=== PATIENT | female | born 1965 | race Caucasian/White ===

== ENCOUNTER 2019-03-04 14:36 | Day surgery (SDC) | payer OTHER ==
[2019-03-04] MEDS ORDERED: Depo-Medrol 40 MG/ML IM ONE (14:37)
[2019-03-04] MEDS ORDERED: Xylocaine 1% Vial 30 ML PF IJ ONE (14:37)
[2019-03-04] MEDS ORDERED: Marcaine 0.5% SDV 10 ML IJ ONE (14:37)
--- NOTE | 2019-03-04 16:27 | XRAY ---
7 seconds of fluoroscopy was used in surgery for a right intra-articular knee injection.
--- NOTE | 2019-03-04 16:37 | XRAY ---
8 seconds of fluoroscopy was used in surgery for a left intra-articular knee injection.
--- NOTE | 2019-03-05 07:12 | XRAY ---
Indication: Intra-articular injection. Intraoperative fluoroscopy was provided for 8 seconds. A single digital spot image demonstrates the needle tip to be projected over the left femur intercondylar notch. A small amount of contrast has been injected for needle tip placement. Correlate with intraoperative findings/report.
--- NOTE | 2019-03-05 07:14 | XRAY ---
Indication: Intra-articular knee injection. Intraoperative fluoroscopy was provided for 7 seconds. A single digital spot image demonstrates the needle tip to be projected over the right femur intercondylar notch. A small amount of contrast has been injected for needle tip placement. Correlate with intraoperative findings/report.
== END 2019-03-04 15:48 | disposition home or self-care (01) ==
LOC: SDC-PAIN 14:36
PROVIDERS: ATTEND Psychiatry & Neurology Pain Medicine
DX: M17.0 Bilateral primary osteoarthritis of knee (principal); E11.9 Type 2 diabetes mellitus without complications; I10 Essential (primary) hypertension; J45.909 Unspecified asthma, uncomplicated; M06.9 Rheumatoid arthritis, unspecified; E78.00 Pure hypercholesterolemia, unspecified; Z79.899 Other long term (current) drug therapy
CPT/HCPCS: 20610; 73560; 77002; 82962; 84703; J1030; J2001; Q9966

== ENCOUNTER 2019-07-29 14:11 | Day surgery (SDC) | payer OTHER ==
[2019-07-29] MEDS ORDERED: Xylocaine 1% Vial 30 ML PF IJ ONE (14:12)
[2019-07-29] MEDS ORDERED: Marcaine 0.5% SDV 10 ML IM ONE (14:12)
[2019-07-29] MEDS ORDERED: Depo-Medrol 40 MG/ML IM ONE (14:12)
--- NOTE | 2019-07-29 15:18 | XRAY ---
Indication: Right knee injection. Intraoperative fluoroscopy was provided for 9 seconds. Single digital spot image submitted for interpretation demonstrates anterior needle tip projecting over the right femur intercondylar notch. Small amount of contrast injected for needle tip placement. Correlate with intraoperative findings/report.
--- NOTE | 2019-07-29 15:20 | XRAY ---
Indication: Left knee injection. Intraoperative fluoroscopy was provided for 5 seconds. Single digital spot image submitted for interpretation demonstrates anterior needle tip projecting over the left femur intercondylar notch. Small amount of contrast injected for needle tip placement. Correlate with intraoperative findings/report.
--- NOTE | 2019-07-29 16:43 | XRAY ---
9 seconds fluoroscopy time in surgery for right knee injection.
--- NOTE | 2019-07-29 16:53 | XRAY ---
5 seconds fluoroscopy time in surgery for left knee injection.
== END 2019-07-29 15:00 | disposition home or self-care (01) ==
LOC: SDC-PAIN 14:11
PROVIDERS: ATTEND Psychiatry & Neurology Pain Medicine
DX: M17.0 Bilateral primary osteoarthritis of knee (principal); E11.9 Type 2 diabetes mellitus without complications; I10 Essential (primary) hypertension; J45.909 Unspecified asthma, uncomplicated; Z79.899 Other long term (current) drug therapy
CPT/HCPCS: 20610; 73560; 77002; 84703; J1030; J2001; Q9966

== ENCOUNTER 2020-05-11 12:40 | Day surgery (SDC) | payer OTHER ==
[2020-05-11] MEDS ORDERED: Xylocaine 1% Vial 30 ML PF IJ ONE (12:41)
[2020-05-11] MEDS ORDERED: BUPIVACAINE 0.5% VIAL IJ ONE (12:41)
[2020-05-11] MEDS ORDERED: Lactated Ringers 1,000 ML IV ONE (16:09)
--- NOTE | 2020-05-11 16:49 | XRAY ---
Indication: Right knee genicular nerve block. Intraoperative fluoroscopy was provided for 16 seconds. 2 digital spot images of the right knee submitted for interpretation demonstrates anterior needle tips projecting medial/lateral supracondylar and medial tibial plateau. Correlate with intraoperative findings/report.
--- NOTE | 2020-05-11 16:49 | XRAY ---
Indication: Left knee genicular nerve block. Intraoperative fluoroscopy was provided for 17 seconds. 2 digital spot images of the left knee submitted for interpretation demonstrates anterior needle tips projecting medial/lateral supracondylar and medial tibial plateau. Correlate with intraoperative findings/report.
--- NOTE | 2020-05-11 16:51 | XRAY ---
17 seconds fluoroscopy time in surgery for left genicular nerve block.
--- NOTE | 2020-05-11 16:51 | XRAY ---
16 seconds fluoroscopy time in surgery for right genicular nerve block.
== END 2020-05-11 15:57 | disposition home or self-care (01) ==
LOC: SDC-PAIN 12:40
PROVIDERS: ATTEND Psychiatry & Neurology Pain Medicine
DX: M17.0 Bilateral primary osteoarthritis of knee (principal); E11.9 Type 2 diabetes mellitus without complications; I10 Essential (primary) hypertension; J45.909 Unspecified asthma, uncomplicated; Z79.899 Other long term (current) drug therapy
CPT/HCPCS: 64454; 73560; 77002; 82947; 82962; 84703; J2001

== ENCOUNTER 2020-09-07 10:48 | Day surgery (SDC) | payer OTHER ==
[2020-09-07] MEDS ORDERED: SYNVISC 16 MG/2 ML SYRINGE IU ONE (10:49)
[2020-09-07] MEDS ORDERED: Xylocaine 1% Vial 30 ML PF IJ ONE (10:49)
--- NOTE | 2020-09-07 13:37 | XRAY ---
Indication: Left knee injection. Intraoperative fluoroscopy provided for 8 seconds. Single digital spot image submitted for interpretation demonstrates needle tip projecting over the left femur intercondylar notch. Small amount of contrast injected for needle tip placement. Correlate with intraoperative findings/report.
--- NOTE | 2020-09-07 13:47 | XRAY ---
Indication: Right knee injection. Intraoperative fluoroscopy provided for 7 seconds. Single digital spot image submitted for interpretation demonstrates needle tip projecting over the right femur intercondylar notch. Small amount of contrast injected for needle tip placement. Correlate with intraoperative findings/report.
--- NOTE | 2020-09-07 14:02 | XRAY ---
7 seconds fluoroscopy time in surgery for intra-articular injection of the left knee.
--- NOTE | 2020-09-07 14:02 | XRAY ---
8 seconds fluoroscopy time in surgery for intra-articular injection for the right knee.
== END 2020-09-07 13:08 | disposition home or self-care (01) ==
LOC: SDC-PAIN 10:48
PROVIDERS: ATTEND Psychiatry & Neurology Pain Medicine
DX: M17.0 Bilateral primary osteoarthritis of knee (principal); E11.9 Type 2 diabetes mellitus without complications; I10 Essential (primary) hypertension; J45.909 Unspecified asthma, uncomplicated; Z79.899 Other long term (current) drug therapy
CPT/HCPCS: 20610; 73560; 77002; 82947; 84703; J2001; J7325; Q9966

== ENCOUNTER 2020-09-14 08:51 | Day surgery (SDC) | payer OTHER ==
[2020-09-14] MEDS ORDERED: SYNVISC 16 MG/2 ML SYRINGE IU ONE (08:52)
[2020-09-14] MEDS ORDERED: Xylocaine 1% Vial 30 ML PF IJ ONE (08:52)
--- NOTE | 2020-09-14 11:08 | XRAY ---
Indication: Left knee injection. Intraoperative fluoroscopy provided for 7 seconds. Single digital spot image submitted for interpretation demonstrates needle tip projecting over the left femur intercondylar notch. Small amount of contrast injected for needle tip placement. Correlate with intraoperative findings/report.
--- NOTE | 2020-09-14 11:37 | XRAY ---
7 seconds fluoroscopy time in surgery for intra-articular injection of the right knee.
--- NOTE | 2020-09-14 11:46 | XRAY ---
7 seconds fluoroscopy time in surgery for intra-articular injection of the left knee.
== END 2020-09-14 10:41 | disposition home or self-care (01) ==
LOC: SDC-PAIN 08:51
PROVIDERS: ATTEND Psychiatry & Neurology Pain Medicine
DX: M17.0 Bilateral primary osteoarthritis of knee (principal); E11.9 Type 2 diabetes mellitus without complications; I10 Essential (primary) hypertension; J45.909 Unspecified asthma, uncomplicated; Z79.899 Other long term (current) drug therapy; E78.00 Pure hypercholesterolemia, unspecified; M06.9 Rheumatoid arthritis, unspecified
CPT/HCPCS: 20610; 73560; 77002; 82947; 84703; J2001; J7325; Q9966

== ENCOUNTER 2020-09-21 10:20 | Day surgery (SDC) | payer OTHER ==
[2020-09-21] MEDS ORDERED: SYNVISC 16 MG/2 ML SYRINGE IU ONE (10:21)
[2020-09-21] MEDS ORDERED: Xylocaine 1% Vial 30 ML PF IJ ONE (10:21)
--- NOTE | 2020-09-21 12:59 | XRAY ---
7 seconds fluoroscopy time in surgery for intra-articular injection of the right knee.
--- NOTE | 2020-09-21 13:09 | XRAY ---
8 seconds fluoroscopy time in surgery for intra-articular injection of the left knee.
--- NOTE | 2020-09-21 16:44 | XRAY ---
Indication: Right knee injection. Intraoperative fluoroscopy provided for 8 seconds. Single digital spot image submitted for interpretation demonstrates needle tip projecting over the right femur intercondylar notch. Small amount of contrast injected for needle tip placement. Correlate with intraoperative findings/report.
== END 2020-09-21 12:33 | disposition home or self-care (01) ==
LOC: SDC-PAIN 10:20
PROVIDERS: ATTEND Psychiatry & Neurology Pain Medicine
DX: M17.0 Bilateral primary osteoarthritis of knee (principal); E11.9 Type 2 diabetes mellitus without complications; I10 Essential (primary) hypertension; J45.909 Unspecified asthma, uncomplicated; Z79.899 Other long term (current) drug therapy; E78.00 Pure hypercholesterolemia, unspecified
CPT/HCPCS: 20610; 73560; 76937; 77002; 82947; 84703; J2001; J7325; Q9966

== ENCOUNTER 2021-05-10 12:03 | Day surgery (SDC) | payer OTHER ==
[2021-05-10] MEDS ORDERED: SYNVISC 16 MG/2 ML SYRINGE IU ONE (12:04)
[2021-05-10] MEDS ORDERED: Xylocaine 1% Vial 30 ML PF IJ ONE (12:04)
--- NOTE | 2021-05-10 16:42 | XRAY ---
Indication: Left knee injection. Intraoperative fluoroscopy provided for 8 seconds. Single digital spot image submitted for interpretation demonstrates needle tip projecting over left femur intercondylar notch. Small amount of contrast injected for needle tip placement. Correlate with intraoperative findings/report.
--- NOTE | 2021-05-10 16:42 | XRAY ---
Indication: Right knee injection. Intraoperative fluoroscopy provided for 10 seconds. Single digital spot image submitted for interpretation demonstrates needle tip projecting over right femur intercondylar notch. Small amount of contrast injected for needle tip placement. Correlate with intraoperative findings/report.
--- NOTE | 2021-05-10 16:44 | XRAY ---
10 seconds fluoroscopy time in surgery for intra-articular injection of the right knee.
--- NOTE | 2021-05-10 16:54 | XRAY ---
8 seconds fluoroscopy time in surgery for intra-articular injection of the left knee.
== END 2021-05-10 15:24 | disposition home or self-care (01) ==
LOC: SDC-PAIN 12:03
PROVIDERS: ATTEND Psychiatry & Neurology Pain Medicine
DX: M17.0 Bilateral primary osteoarthritis of knee (principal); E11.9 Type 2 diabetes mellitus without complications; I10 Essential (primary) hypertension; Z79.899 Other long term (current) drug therapy
CPT/HCPCS: 20610; 73560; 77002; 82947; 84703; J2001; J7325; Q9966

== ENCOUNTER 2021-05-17 12:47 | Day surgery (SDC) | payer OTHER ==
[2021-05-17] MEDS ORDERED: Xylocaine 1% Vial 30 ML PF IJ ONE (12:48)
[2021-05-17] MEDS ORDERED: SYNVISC 16 MG/2 ML SYRINGE IU ONE (12:48)
--- NOTE | 2021-05-17 16:40 | XRAY ---
Indication: Left knee injection. Intraoperative fluoroscopy provided for 4 seconds. Single digital spot image submitted for interpretation demonstrates needle tip projecting over the left femur intercondylar notch. Small amount of contrast injected for needle tip placement. Correlate with intraoperative findings/report.
--- NOTE | 2021-05-17 16:47 | XRAY ---
7 seconds of fluoroscopy was used in surgery for a left intra-articular knee injection.
--- NOTE | 2021-05-17 16:57 | XRAY ---
4 seconds of fluoroscopy was used in surgery for a left intra-articular knee injection.
== END 2021-05-17 14:49 | disposition home or self-care (01) ==
LOC: SDC-PAIN 12:47
PROVIDERS: ATTEND Psychiatry & Neurology Pain Medicine
DX: M17.0 Bilateral primary osteoarthritis of knee (principal); E11.9 Type 2 diabetes mellitus without complications; I10 Essential (primary) hypertension; Z79.899 Other long term (current) drug therapy
CPT/HCPCS: 20610; 73560; 77002; 82947; 84703; J2001; J7325; Q9966

== ENCOUNTER 2021-05-24 09:45 | Day surgery (SDC) | payer OTHER ==
[2021-05-24] MEDS ORDERED: Xylocaine 1% Vial 30 ML PF IJ ONE (09:46)
[2021-05-24] MEDS ORDERED: SYNVISC 16 MG/2 ML SYRINGE IU ONE (09:46)
--- NOTE | 2021-05-24 12:47 | XRAY ---
Indication: Right leg pain. Two-dimensional sonogram and color Doppler imaging of the major venous vessels of the right leg performed. Comparison: None No thrombus seen in the examined deep venous vessels of the right leg including greater saphenous vein. Veins demonstrate normal compressibility. Venous waveforms are normal with and without augmentation. Impression: Right leg negative for DVT.
--- NOTE | 2021-05-24 12:58 | XRAY ---
9 seconds fluoroscopy time in surgery for intra-articular injection of the left knee.
--- NOTE | 2021-05-24 12:58 | XRAY ---
8 seconds fluoroscopy time in surgery for intra-articular injection of the right knee.
--- NOTE | 2021-05-24 13:08 | XRAY ---
Indication: Left knee injection. Intraoperative fluoroscopy provided for 9 seconds. Single digital spot image submitted for interpretation demonstrates needle tip projecting over the left femur intercondylar notch. Small amount of contrast injected for needle tip placement. Correlate with intraoperative findings/report.
== END 2021-05-24 12:22 | disposition home or self-care (01) ==
LOC: SDC-PAIN 09:45
PROVIDERS: ATTEND Psychiatry & Neurology Pain Medicine
DX: M17.0 Bilateral primary osteoarthritis of knee (principal); I10 Essential (primary) hypertension; E11.9 Type 2 diabetes mellitus without complications; Z79.899 Other long term (current) drug therapy
CPT/HCPCS: 20610; 73560; 77002; 82947; 84703; 93971; J2001; J7325; Q9966

== ENCOUNTER 2021-11-22 11:01 | Day surgery (SDC) | payer OTHER ==
[2021-11-22] MEDS ORDERED: XYLOCAINE-MPF 1% 5ML SDV IJ ONE (11:02)
[2021-11-22] MEDS ORDERED: SYNVISC 16 MG/2 ML SYRINGE IU ONE (11:02)
--- NOTE | 2021-11-22 14:02 | XRAY ---
Indication: Right knee injection. Intraoperative fluoroscopy provided for 9 seconds. Single digital spot image submitted for interpretation demonstrates needle tip projecting over the right femur intercondylar notch. Small amount of contrast injected for needle tip placement. Correlate with intraoperative findings/report.
[2021-11-22] MEDS ORDERED: Lactated Ringers 1,000 ML IV ONE (14:35)
--- NOTE | 2021-11-22 16:45 | XRAY ---
9 seconds of fluoroscopy was used in surgery for a right knee intra-articular injection.
--- NOTE | 2021-11-22 16:46 | XRAY ---
8 seconds of fluoroscopy was used in surgery for a left knee intra-articular injection.
== END 2021-11-22 13:34 | disposition home or self-care (01) ==
LOC: SDC-PAIN 11:01
PROVIDERS: ATTEND Psychiatry & Neurology Pain Medicine
DX: M17.0 Bilateral primary osteoarthritis of knee (principal); E11.9 Type 2 diabetes mellitus without complications; Z79.899 Other long term (current) drug therapy
CPT/HCPCS: 20610; 73560; 77002; 82947; J7325; Q9966

== ENCOUNTER 2022-04-25 15:44 | Day surgery (SDC) | payer OTHER ==
[2022-04-25] MEDS ORDERED: Xylocaine 1% Vial 30 ML PF IJ ONE (15:45)
[2022-04-25] MEDS ORDERED: BUPIVACAINE 0.5% VIAL IJ ONE (15:45)
--- NOTE | 2022-04-25 20:00 | XRAY ---
Indication: Left knee genicular nerve block. Intraoperative fluoroscopy provided for 21 seconds. 2 digital spot images of the left knee submitted for interpretation demonstrates anterior needle tips projecting medial/lateral supracondylar and medial tibial plateau. Correlate with intraoperative findings/report.
--- NOTE | 2022-04-25 20:03 | XRAY ---
Indication: Right knee genicular nerve block. Intraoperative fluoroscopy provided for 18 seconds. 2 digital spot images of the right knee submitted for interpretation demonstrates anterior needle tips projecting medial/lateral supracondylar and medial tibial plateau. Correlate with intraoperative findings/report.
--- NOTE | 2022-04-26 08:45 | XRAY ---
21 seconds of fluoroscopy was used in surgery for a left genicular knee injection.
--- NOTE | 2022-04-26 08:46 | XRAY ---
18 seconds of fluoroscopy was used in surgery for a right genicular knee injection.
== END 2022-04-25 18:25 | disposition home or self-care (01) ==
LOC: SDC-PAIN 15:44
PROVIDERS: ATTEND Psychiatry & Neurology Pain Medicine
DX: M17.0 Bilateral primary osteoarthritis of knee (principal); E11.9 Type 2 diabetes mellitus without complications; Z79.899 Other long term (current) drug therapy
CPT/HCPCS: 64454; 73560; 77002; 82947; J2001